=== PATIENT | female | born 1985 | race Caucasian/White ===

== ENCOUNTER → 2017-04-29 09:00 | Outpatient (CLI) | payer OTHER, SELFPAY ==
[2017-04-29 09:21] LABS: Absolute Neutrophil Count 4.4 X10^3/uL (2.0-7.7); Basophil# 0.03 X10^3/uL; Basophil% 0.5 % (0-1); Eosinophil# 0.18 X10^3/uL; Eosinophils% 2.7 % (0-5); Hematocrit 38.6 % (37-47); Hemoglobin 12.7 g/dl (12.0-15.0); Lymphocyte % 24.4 % (19-41); Mean Corp Hgb Conc 32.9 g/gl (32-36); Mean Corpuscular Hgb 29.5 pg (27.0-32.0); Mean Corpuscular Volume 89.8 fL (81-99); Mean Platelet Vol. 10.3 fl (6.2-12.0); Monocyte# 0.37 X10^3/uL; Monocyte% 5.6 % (0-10); Neutrophil # 4.37 X10^3/uL (2.7-7.7); Neutrophil % 66.6 % (47-70); Platelet Count 229 K/mm3 (150-450); RBC Distribution Width CV 12.8 % (11.6-14.6); RBC Distribution Width SD 41.5 fl (35.1-43.9); White Blood Count 6.6 K/mm3 (4.4-11.0)
[2017-04-29 09:25] LABS: POSITIVE COUNT NO; POSITIVE DIFFERENTIAL NO; POSITIVE MORPHOLOGY NO
[2017-04-29 09:35] LABS: AST(SGOT) 16 U/L (15-37); Alanine Aminotransfer ALT/SGPT 22 U/L (13-56); Albumin, Serum 3.8 g/dL (3.2-5.0); Alkaline Phosphatase 78 U/L (45-117); Bilirubin, Direct 0.08 mg/dL (0.00-0.30); Globulin 3.2 g/dL (2.2-4.2)
== END ==
PROVIDERS: Family Provider Family Medicine; PCP Family Medicine; Visit Provider Nurse Practitioner Family
DX: R10.11 Right upper quadrant pain (principal)
CPT/HCPCS: 80076; 85025

== ENCOUNTER → 2017-06-05 17:00 | Outpatient (CLI) | payer SELFPAY ==
[2017-06-05 17:42] LABS: D-Dimer Quantitative (DVT/PE) 0.34 FEU/ug/m (0.27-0.49)
== END ==
PROVIDERS: Visit Provider Family Medicine
DX: M54.9 Dorsalgia, unspecified (principal); R05 Cough; R53.83 Other fatigue
CPT/HCPCS: 85379

== ENCOUNTER 2017-06-20 11:26 | Emergency (ER) | payer OTHER, SELFPAY ==
[2017-06-20 11:27] VITALS: BP 150/93; PULSE 98; RESP 16; TEMP 36.8; O2SAT 99; BMI 47.8
--- NOTE | 2017-06-20 11:45 | ED.VISSUMM ---
- ER Visit Summary Date of Service: 06/20/17 Chief Complaint: Right upper quadrant abdominal pain History of Present Illness: The patient is a 31 F is post laparoscopic cholecystectomy done at [facility] 1 month ago. Outpatient procedure patient did well. Has not had any problems. Yesterday had some right upper quadrant discomfort associated with nausea and diarrhea. No melena. No fever. She described it as sharp pains. 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 She denies dysuria. She currently has an IUD and does not believe she is . Physical Examination: Well-appearing young female. Vital signs are stable afebrile. Patient pulse ox 99% on room air no signs of hypoxia. H EENT exam is unremarkable. Neck nontender. Lungs clear to auscultation bilaterally. Heart regular rate and rhythm no murmur. Abdomen is soft. Nondistended. Normal bowel sounds. She has mild right upper quadrant tenderness. No rebound, guarding or rigidity. No hernias or masses. Left upper, left lower and right lower quadrants are unremarkable. No peritoneal signs. No McBurney's point tenderness. No hernias or masses. Normal bowel sounds. She needs more fluids. She is moving all 4 extremities. Neurovascularly intact. Nontender no edema. Back exam nontender no CVA tenderness. Neurologic exam normal. Test Results: Normal. BMP normal. Liver enzymes normal. Lipase normal. Emergency Department Course and Treatment: Patient will undergo a GI workup. Be treated with IV fluids, Zofran for nausea and Toradol for pain. Is not Treatment Plan: Repeat exam patient is doing well at 1329. Abdomen is benign. She and I discussed her test. Clinically I do not feel that she needs a CAT scan at this time. She is comfortable with that plan. She has a follow-up with a general surgeon if she is not improving or return to ER if she feels worse. All Disposition: Discharge Impression: Acute abdominal pain right upper quadrant with nausea and vomiting secondary to viral syndrome. Status post cholecystectomy This note was generated with [employer] dictation software. It may contain incorrect words, spelling, and punctuation that were not noted in review of the chart prior to signing ED Disposition - Plan for ED Patient: Chief Complaint: Abd Pain Referrals: Abdulkadir Villafuerte MD [Primary Care Provider] -
--- NOTE | 2017-06-20 11:49 | ED.DCSUM_ITS ---
- ER Visit Summary Date of Service: 06/20/17 Chief Complaint: Right upper quadrant abdominal pain History of Present Illness: The patient is a 31 F is post laparoscopic cholecystectomy done at [facility] 1 month ago. Outpatient procedure patient did well. Has not had any problems. Yesterday had some right upper quadrant discomfort associated with nausea and diarrhea. No melena. No fever. She described it as sharp pains. 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 She denies dysuria. She currently has an IUD and does not believe she is . Physical Examination: Well-appearing young female. Vital signs are stable afebrile. Patient pulse ox 99% on room air no signs of hypoxia. H EENT exam is unremarkable. Neck nontender. Lungs clear to auscultation bilaterally. Heart regular rate and rhythm no murmur. Abdomen is soft. Nondistended. Normal bowel sounds. She has mild right upper quadrant tenderness. No rebound , guarding or rigidity. No hernias or masses. Left upper, left lower and right lower quadrants are unremarkable. No peritoneal signs. No McBurney's point tenderness. No hernias or masses. Normal bowel sounds. She needs more fluids. She is moving all 4 extremities. Neurovascularly intact. Nontender no edema. Back exam nontender no CVA tenderness. Neurologic exam normal. Test Results: Normal. BMP normal. Liver enzymes normal. Lipase normal. Emergency Department Course and Treatment: Patient will undergo a GI workup. Be treated with IV fluids, Zofran for nausea and Toradol for pain. Is not Treatment Plan: Repeat exam patient is doing well at 1329. Abdomen is benign. She and I discussed her test. Clinically I do not feel that she needs a CAT scan at this time. She is comfortable with that plan. She has a follow-up with a general surgeon if she is not improving or return to ER if she feels worse. All Disposition: Discharge Impression: Acute abdominal pain right upper quadrant with nausea and vomiting secondary to viral syndrome. Status post cholecystectomy This note was generated with [employer] dictation software. It may contain incorrect words, spelling, and punctuation that were not noted in review of the chart prior to signing ED Disposition - Plan for ED Patient: Chief Complaint: Abd Pain Referrals: Abdulkadir Villafuerte MD [Primary Care Provider] -
[2017-06-20] MEDS: 0.9% Normal Saline 1,000 ML 1000 ML IV (11:59)
[2017-06-20] MEDS: Ondansetron 4 MG/2 ML Vial IV (11:59)
[2017-06-20] MEDS: Ketorolac 30 MG/ML Syringe IV (11:59)
[2017-06-20 12:14] LABS: AST(SGOT) 20 U/L (15-37); Alanine Aminotransfer ALT/SGPT 38 U/L (13-56); Albumin, Serum 3.9 g/dL (3.2-5.0); Alkaline Phosphatase 92 U/L (45-117); Anion Gap 7 (5-15); BUN 13 mg/dL (7-18); BUN/Creat Ratio 15.3 RATIO (10-20); Bilirubin, Direct 0.17 mg/dL (0.00-0.30); Calcium,Total 8.1 mg/dL (8.5-10.1); Chloride 111 mmol/L (98-107); Creatinine, Serum 0.85 mg/dL (0.55-1.02); EST Glomerular Filtration Rate 83 mL/min (>60); Est Glom Filt Rate - Afr Amer 101 mL/min (>60); Estimated Creatinine Clearance 158.69 ml/min; Globulin 3.1 g/dL (2.2-4.2); Glucose 90 mg/dL (74-106); Lipase 85 U/L (73-393); Potassium 3.7 mmol/L (3.5-5.1); Sodium Level 139 mmol/L (136-145)
[2017-06-20 12:33] LABS: Absolute Lymphocyte Count 0.77 X10^3/ul (0.83-4.51); Absolute Neutrophil Count 4.4 X10^3/uL (2.0-7.7); Basophil# 0.01 X10^3/uL; Basophil% 0.2 % (0-1); Eosinophil# 0.07 X10^3/uL; Eosinophils% 1.2 % (0-5); Hemoglobin 13.9 g/dl (12.0-15.0); Lymphocyte # 0.77 X10^3/ul (4.0); Lymphocyte % 13.6 % (19-41); Mean Corp Hgb Conc 33.9 g/gl (32-36); Mean Corpuscular Hgb 30.3 pg (27.0-32.0); Mean Corpuscular Volume 89.3 fL (81-99); Mean Platelet Vol. 10.7 fl (6.2-12.0); Monocyte# 0.44 X10^3/uL; Monocyte% 7.7 % (0-10); Neutrophil # 4.38 X10^3/uL (2.7-7.7); Neutrophil % 77.1 % (47-70); POSITIVE COUNT NO; POSITIVE DIFFERENTIAL NO; POSITIVE MORPHOLOGY NO; Platelet Count 203 K/mm3 (150-450); RBC Distribution Width CV 12.9 % (11.6-14.6); RBC Distribution Width SD 41.9 fl (35.1-43.9); Red Blood Count 4.59 M/mm3 (4.2-5.4); White Blood Count 5.7 K/mm3 (4.4-11.0)
--- NOTE | 2017-06-20 13:31 | ED.DEP ---
ED Disposition - Plan for ED Patient: Disposition: Home or Assisted Living Chief Complaint: Abd Pain Instructions: ED Abdominal Pain Unkn Cause Referrals: Abdulkadir Villafuerte MD [Primary Care Provider] - As Needed Additional Instructions: Plenty of fluids and rest. Tylenol and Motrin for pain. Return to ER if you are feeling worse. If this does not get better and you have continued pain you will need further evaluation and potentially a CAT scan. Today all your tests are normal and I do not think that is necessary.
[2017-06-20 13:39] VITALS: PULSE 92; RESP 14; O2SAT 98
== END 2017-06-20 13:42 | disposition home or self-care (01) ==
PROVIDERS: Emergency Provider Emergency Medicine; Family Provider Family Medicine; PCP Family Medicine
DX: B34.9 Viral infection, unspecified (principal); Z90.49 Acquired absence of other specified parts of digestive tract
CPT/HCPCS: 80048; 80076; 83690; 85025; 96361; 96374; 96375; 99283; J7030; A4216; J2405

== ENCOUNTER 2019-11-14 10:23 | Emergency (ER) | payer BC, SELFPAY ==
[2019-11-14 10:25] VITALS: BP 149/88; PULSE 79; RESP 18; TEMP 36.4; O2SAT 97; BMI 50.5
--- NOTE | 2019-11-14 10:38 | ED.DCSUM_ITS ---
History of Present Illness Chief Complaint: Other, Pain/Inj Informant: Patient Onset: Days Maximum Severity: Mild Narrative: Patient has history of lupus that stable. She reports painful sensation involving the right side of her scalp and face for about 4 5 days. Today she woke and she had more pain trouble opening closing her mouth and her right eye seemed red. 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 Denies: Rhinorrhea, Sore throat Cardiovascular: Denies: Chest pain, Palpitations Respiratory: Denies: Dyspnea, Cough, Dyspnea on exertion Gastrointestinal: Denies: Abdominal pain, Nausea, Vomiting, Diarrhea, Melena, Hematochezia Genitourinary: Denies: Dysuria, Hematuria, Frequency Musculoskeletal: Denies: Back pain, Extremity Pain Skin: Denies: Rash, Wounds Neurological: Denies: Headache, Weakness, Numbness Physical Exam Vital Signs/Narrative: Vital Signs Temp Pulse Resp BP Pulse Ox 11/14/19 10:25 97.5 F L 79 18 149/88 H 97 General: Well nourished, Well developed, No Acute Distress Head: Normocephalic, Atraumatic Eyes: Perrl, EOMI ENT: Moist mucous membranes, No rhinorrhea Neck: Supple, Nontender Cardiovascular: Regular rate, Regular rhythm, No murmurs Respiratory: No distress, CTA bilaterally, Chest nontender Abdomen: Soft, Nontender, Nondistended, Normal bowel sounds Back: Nontender, Normal Inspection Extremities: Nontender, No edema Skin: Normal color, No rash Neurological: Alert, Oriented x3, Cranial nerves II-XII grossly intact, Normal Strength, Normal Sensation Psychological: Normal affect, Normal Mood Diagnostic/Tx/Re-eval - Medical Decision Making Her vital signs and physical exam are unremarkable when you palpate the right side of her scalp around her ear into her cheek she has some sense of discomfort and tingling she does have some mild pain to palpation over the right TMJ the TMs and canals are unremarkable the HEENT exam is unremarkable, mouth opening mucosa all normal no click no dental discomfort no neck discomfort fullness or pain her physical exam is otherwise unremarkable she has some very minimal conjunctiva redness to the bulbar conjunctiva right \ none left vision is normal pupils react normally, she has no history of trigeminal neura lgia TMJ syndrome sinusitis or exposures to coronavirus she has been indoors isolating herself Had a long conversation for her she is had this discomfort now for about 4 5 days etiology of which is unclear, at this time I explained to her given the differential should be started on Toradol and Naprosyn for home use erythromycin eye ointment, she was instructed well through outpatient providers tomorrow the next day for further management which may include additional medications and/or adjustments to provide substitute for the Plaquenil which was stopped she understands and agrees to this plan again she had no coronavirus exposures Please note there are no blisters no signs of zoster or any type of infectious etiology on physical exam, she has no symptoms to the left side of the head or the face and no symptoms elsewhere her health is otherwise very good Home stable Final impression painful sensation to right side of head and face ED Disposition - Plan for ED Patient: Diagnosis: Facial pain syndrome Instructions: ED Neuralgia Trigeminal Prescriptions: Erythromycin Ophthalmic 1 applic RIGHT EYE TID #1 tube Prescription Printed Naproxen [Naprosyn] 500 mg PO BID #20 tab Prescription Printed Referrals: Abdulkadir Villafuerte MD [Primary Care Provider] - Additional Instructions: The exact cause of your facial pain is unclear, please follow-up with your outpatient providers return for change in symptoms
[2019-11-14] MEDS: Ketorolac 60 MG/2 ML Vial IM (10:46)
[2019-11-14 11:17] VITALS: BP 130/88; PULSE 74; RESP 16; O2SAT 98
== END 2019-11-14 11:18 | disposition home or self-care (01) ==
LOC: ED 10:58
PROVIDERS: Emergency Provider Emergency Medicine; PCP Family Medicine
DX: R51 Headache (principal); M32.9 Systemic lupus erythematosus, unspecified; Z79.899 Other long term (current) drug therapy
CPT/HCPCS: 96372; 99282

== ENCOUNTER 2019-12-09 21:55 | Emergency (ER) | payer BC, SELFPAY ==
[2019-12-09 21:56] VITALS: BP 153/93; PULSE 100; RESP 18; TEMP 36.3; O2SAT 98; BMI 54.3
--- NOTE | 2019-12-09 22:33 | CT_ITS ---
STUDY: CT BRAIN WITHOUT CONTRAST REASON FOR EXAM: Female, 33 years old. 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 Hx of migraines. RADIATION DOSAGE (If Supplied By Facility): CTDIvol = ( 44.99 ) mGy, DLP = ( 812.98 ) mGycm TECHNIQUE: Transaxial CT imaging of the brain was performed without administration of intravenous contrast material. Individualized dose optimization techniques were used for this CT. COMPARISON: No relevant priors. FINDINGS: Normal soft tissue structures. Normal calvarium. Normal size ventricles and extra-axial spaces for the patient''s age. Normal white matter tracts of the cerebral hemispheres. Normal basal ganglia and thalami. Normal brainstem. Normal cerebellum. There is no intracranial hemorrhage. There are no findings of an acute ischemic infarction. Normal visualized paranasal sinuses. CT/Brain/Head without Contrast IMPRESSION: Normal unenhanced CT scan of the brain. Electronically Signed: Kathrine Sultana MD at 23:49 EDT Tel , Service support ,
[2019-12-09] MEDS: Metoclopramide 10 MG/2 ML Vial IV (22:47)
[2019-12-09] MEDS: DiphenhydrAMINE 50 MG/ML Syringe 25 MG IV (22:47)
[2019-12-09] MEDS: Ketorolac 15 MG/ML Vial IV (22:47)
--- NOTE | 2019-12-10 00:28 | ED.VIS.HA ---
History of Present Illness Chief Complaint: Headache Informant: Patient Onset: Days Context: Gradual Timing: Continuous Quality: Burning Location: Right occipital Current Severity: Moderate Maximum Severity: Severe Worsened by: Nothing Relieved by: Nothing Associated Symptoms: Negative for: Fever, Nausea, Vomiting, Sore Throat, Sinus Pressure, Numbness, Tingling, Preceding Aura, Visual Changes, Blurred Vision, Photophobia, Visual Loss Injury: - - There is no history of trauma Narrative: Patient is a 33-year-old woman with history of migraine headache. She states this headache started 3 days ago. This is not like her migraine headache. The pain describes a burning sensation initially did increase and decrease in intensity is now constant and describes a burning sensation right occipital area. There is no change with touch, change in position i.e. leaning forward or supine versus upright position. She denies rhinorrhea, congestion postnasal drainage. She denies sore throat, change in voice or difficulty swallowing. She denies ringing or ears, ear pain or drainage from her ears. She denies neck stiffness. She denies cardiac symptoms. She denies nausea, vomiting diarrhea. She denies myalgias or arthralgias. She denies rash. She denies problems with balance or coordination. She was placed on gabapentin by her primary care physician with no improvement. Prior similar symptoms: No Recent Illness/Hospitalization: No - Past Medical History (1) History of migraine headaches Status: Acute (2) Family history of subarachnoid hemorrhage Status: Acute Past Medical History - Allergies and Home Meds Allergies/Adverse Reactions: Allergies rizatriptan [From Maxalt] Adverse Reaction (Verified 12/09/19 21:59) Other LIGHTHEADED Primary Care Physician: Abdulkadir Villafuerte MD [Primary Care Provider] - Prior records reviewed: No Surgical History: noncontributory Lives: With Family Smoking Status: Never smoker Alcohol: None Drugs: None Review of Systems General: Denies: Chills, Fever, Sweats Eyes: Denies: Visual changes - bilaterally, Blurred Vision - bilaterally, Diplopia ENT: Denies: Rhinorrhea, Sore throat Cardiovascular: Denies: Chest pain, Palpitations, Heart racing Respiratory: Denies: Dyspnea, Cough, Dyspnea on exertion Gastrointestinal: Denies: Abdominal pain, Nausea, Vomiting, Diarrhea, Melena, Hematochezia Genitourinary: Denies: Dysuria, Hematuria, Frequency Musculoskeletal: Denies: Myalgias, Arthralgias, Neck pain, Back pain, Swelling, Extremity Pain Skin: Denies: Rash, Wounds Neurological: Reports: Headache. Denies: Weakness, Parasthesia, Numbness Psych: Denies: Depression, Anxiety Physical Exam Vital Signs/Narrative: Vital Signs Temp Pulse Resp BP Pulse Ox 12/09/19 21:56 97.3 F L 100 18 153/93 H 98 Inital Vital Signs reviewed: Yes General: Well nourished, Well developed, Obese Head: NC, AT. Negative for: Trauma, Tenderness, Temporary Artery Tenderness, Vesicular Rash, Sinus Tenderness Eyes: Perrl, EOMI. Negative for: Pale conjunctiva, Scleral icterus ENT: Moist mucous membranes, No rhinorrhea, TM's clear, - - There is no APD. There is no photophobia.. Negative for: Nasal congestion, Sinus tenderness Neck: Supple, No Lymphadenopathy, No JVD, Nontender, No Meningismus Cardiovascular: Regular rate, Regular rhythm, No murmurs, Normal S1, Normal S2 Respiratory: No distress, CTA bilaterally, Chest nontender Abdomen: Soft, Nontender, Nondistended, Normal bowel sounds Back: Nontender, Normal Inspection Extremities: Nontender, No edema Skin: Normal color, No rash Neuro: Alert, Oriented x3, Cranial nerves II-XII grossly intact, Normal Strength, Normal Sensation, Normal DTR, Normal Gait, - - Is no clonus or Babinski sign. There is no abnormality with cerebellar testing. Psychological: Normal affect Diagnostic/Tx/Re-eval Impressions Brain CT 12/09/19 22:33 IMPRESSION: Normal unenhanced CT scan of the brain. Electronically Signed: Kathrine Sultana MD at 23:49 EDT Tel , Service support , 12/09/19 22:33 Brain/Head without Contrast [CT] Stat - Medical Decision Making Patient's history and exam does not suggest greater occipital neuralgia. This may be an atypical migraine. With family history of subarachnoid hemorrhage CT was obtained. Patient was medicated with IV Benadryl, Reglan and Toradol. When she was reassessed at 0028 she is sitting up smiling in no discomfort. ED Disposition - Plan for ED Patient: Disposition: Home or Assisted Living Diagnosis: Unilateral occipital headache Instructions: ED Headache Unspecified Referrals: Abdulkadir Villafuerte MD [Primary Care Provider] - As Needed
[2019-12-10 00:38] VITALS: BP 144/71; PULSE 74; RESP 18; O2SAT 98
== END 2019-12-10 00:38 | disposition home or self-care (01) ==
PROVIDERS: Emergency Provider Emergency Medicine; PCP Family Medicine
DX: R51.9 Headache, unspecified (principal); E66.9 Obesity, unspecified; Z79.899 Other long term (current) drug therapy
CPT/HCPCS: 70450; 96374; 96375; 99285; A4216

== ENCOUNTER 2024-07-19 16:25 | Emergency (ER) | payer BC, SELFPAY ==
[2024-07-19 16:26] VITALS: BP 161/108; PULSE 67; RESP 16; TEMP 37.1; O2SAT 100; BMI 48.4
[2024-07-19 16:39] VITALS: O2SAT 100
--- NOTE | 2024-07-19 16:42 | EKG12_ITS ---
Test Reason : SOB Blood Pressure : */* mmHG Vent. Rate : 63 BPM Atrial Rate : 63 BPM P-R Int : 168 ms QRS Dur : 86 ms QT Int : 422 ms P-R-T Axes : 45 37 20 degrees QTcB Int : 431 ms Normal sinus rhythm Normal ECG Confirmed by VIRGINIA CLIFTON, GEE ([id number]), photo editor JANETTE SINGH ([id number]) on 07/20/2024 1:29:05 PM Referred By: Confirmed By: GEE COLEMAN MD
--- NOTE | 2024-07-19 16:45 | EDS_ITS ---
HPI History of Present Illness Chief Complaint: Shortness of Breath Informant: patient Onset/Context/Timing Onset: Days (3) Context: gradual Timing: Continuous Quality: Positive for Dyspnea on exertion Worsened by: Exertion Relieved by: - (Fan) Associated Symptoms Negative for cough, rhinorrhea, post nasal drip, ear pain, fever, sore throat, chills, sweats, clear sputum, white sputum, yellow sputum or green sputum Chest Pain: Positive for - (Heaviness) Narrative Narrative: Patient presents with shortness of breath that has been getting worse over the past 3 days. Patient states it is gradually getting worse. Patient states it is constant but worse with exertion. Patient states he gets better when she is able to put a fan in front of her. Patient admits to some heaviness in her chest but denies any fevers, chills, cough, sore throat, rhinorrhea. Patient denies any nausea or vomiting. Patient denies any diaphoresis. PE Risk Factors: Negative for Cancer, OCP + Smoking + > 35, Prior DVT or PE, Recent immobilization, Recent surgery or Recent travel [facility] Medical History FHx: cholecystectomy Lupus Depression Anxiety Medical History no medical history Home Medications ?Medication ?Instructions ?Recorded ?Last Taken ?Type duloxetine 60 mg capsule,delayed 60 mg PO DAILY 06/20/17 History release topiramate 100 mg tablet 100 mg PO DAILY 06/20/17 History gabapentin 100 mg capsule 100 mg PO BID 12/09/19 Unkno wn History Allergy/AdvReac Type Severity Reaction Status Date / Time rizatriptan (From [facility]) AdvReac Other Verified 07/19/24 16:26 Family History (Updated 07/19/24 @ 16:[address] Benton Keyes DO) Mother CAD (coronary artery disease) Family History no significant family his Surgical History History of tonsillectomy and adenoidectomy Previous section H/O gastric bypass Surgical History no surgical history Social History Smoking Status: Never smoker ROS ROS ED Constitutional Constitutional ED: Denies chills or fever(s) Eyes Eyes: Denies blurry vision or change in vision ENT ENT ED: Denies rhinorrhea or sore throat Cardiovascular Cardiovascular: Reports chest pain; Denies palpitations Respiratory/Chest Respiratory/Chest: Reports dyspnea; Denies cough Gastrointestinal Gastrointestinal: Denies nausea or vomiting Genitourinary Genitourinary ED: Denies dysuria or hematuria Musculoskeletal Musculoskeletal: Denies back pain or neck pain Integumentary Denies abscess or rash Neurologic Neurologic: Denies headache(s) or weakness Allergic/Immunologic Allergic/Immunologic ED: Denies mouth swelling or urticaria EXAM Physical Exam Const Vital Signs: 07/19/24 16:26 07/19/24 16:39 07/19/24 17:14 Temperature 98.7 F Temperature Source Oral Pulse Rate 67 83 Respiratory Rate 16 22 H Respiratory Effort Normal Respiratory Depth Normal Respiratory Pattern Normal Tachypnea Blood Pressure 161/108 H Blood Pressure Mean 125 Pulse Ox 100 Oxygen Delivery Method Room Air Room Air 07/19/24 17:25 07/19/24 18:00 07/19/24 19:12 Temperature 98.7 F Temperature Source Pulse Rate 65 70 70 Respiratory Rate 28 H 22 H 22 H Respiratory Effort Respiratory Depth Respiratory Pattern Blood Pressure 126/81 H 118/73 Blood Pressure Mean 96 88 Pulse Ox 99 Oxygen Delivery Method Positive well nourished and well developed Constitutional Narrative: BMI is 48.5 General Appearance ED: well developed and NAD HEENT Reports moist mucous membranes Neck supple and no JVD Resp normal respiratory effort and clear to auscultation bilaterally Cardio regular rate and regular rhythm GI non-tender and non-distended Palpation: soft Neuro oriented x3, CN's II-XII intact bilaterally and no sensory deficits noted [place] Coma Scale: document GCS findings Spontaneous Obeys Commands Oriented 15 Sensorium / Orientation: alert Motor Exam: strength 5/5 throughout MDM MDM MDM Narrative Medical decision making narrative: Differential diagnosis includes cardiac dysrhythmia, cardiac ischemia, pneumonia, bronchitis, viral illness, pulmonary embolism, and anxiety. EKG will be obtained to assess for cardiac dysrhythmia and cardiac ischemia. Chest x-ray will be obtained to assess for pneumonia or bronchitis. CBC will be obtained to assess for leukocytosis and anemia. Basic metabolic profile will be obtained to assess for electrolyte abnormality renal function. Serum hCG will be obtained to assess for . D-dimer will be obtained to assess for pulmonary embolism. COVID-19, influenza, and RSV PCR will be obtained to assess for viral illness. History & Record Review Additional record(s) reviewed:: Prior labs Lab Data Attestation: I reviewed the patient's lab results. Lab results narrative: CBC was reviewed and was within normal limits. Basic metabolic profile was reviewed and was within normal limits. D-dimer was reviewed and was normal at 0.27. Serum hCG was reviewed and was negative. COVID-19 PCR was reviewed and was negative. Influenza PCR was reviewed and was negative for influenza A and influenza B. RSV PCR was reviewed and was negative. Labs: Laboratory Results - last 24 hr 07/19/24 16:55 WBC 9.0 RBC 4.50 Hgb 13.7 Hct 40.0 MCV 88.9 MCH 30.4 MCHC 34.3 RDW Std Deviation 44.5 H RDW Coeff of Jamal 13.7 Plt Count 278 MPV 10.8 Immature Gran % (Auto) 0.400 Neut % (Auto) 66.0 Lymph % (Auto) 24.9 [place] % (Auto) 8.2 Eos % (Auto) 0.2 Baso % (Auto) 0.3 Absolute Neuts (auto) 5.9 Absolute Lymphs (auto) 2.23 Nucleated RBC % 0 D-Dimer Quant (PE/DVT) 0.27 Sodium 136 Potassium 4.2 Chloride 105 Carbon Dioxide 20.3 L Anion Gap 11 BUN 16 Creatinine 0.91 Estim Creat Clear Calc 92.70 Est GFR (MDRD) Non-Af 84 BUN/Creatinine Ratio 17.8 Glucose 100 H Calcium 9.4 Serum , Qual NEGATIVE Radiography Diagnostic Testing: Clinical Impression(s) from Imaging Studies Chest X-Ray 07/19/24 17:15 IMPRESSION: No acute cardiopulmonary abnormality. Reading Location: [id number] and lateral chest x-ray was obtained. There are 2 views. On my independent interpretation, lung mckeon are clear. There is normal cardiac silhouette. Bony thorax is normal. There is no acute process noted. Radiologist also interpreted the x-ray and agrees. EKG Initial EKG: Interpretation: Sinus Rhythm (63) and No Acute Injury Pattern Comments: EKG was obtained. On my independent interpretation, it showed a normal sinus rhythm with a rate of 63. CO interval, QRS interval, and QTc intervals were all normal. [place] was normal. There are no acute ST or T wave changes. Prior EKG tracings: not available for review Prior: No Prior Treatment and Re-Evaluation :: Patient was given a DuoNeb aerosol. Patient had minimal improvement with this. Patient was advised of her findings. Patient was instructed to follow-up with her primary care physician in 5 to 7 days. Patient directed to return if worse in any way. Patient understood and was agreeable with the plan. All questions were answered. Discharge Plan Triage Chief Complaint: Shortness of Breath ED Provider: Benton Keyes Dx/Rx/DC Orders Clinical Impression: Dyspnea, Elevated blood pressure reading without diagnosis of hypertension Instructions: ED Dyspnea Prescriptions: No Action topiramate 100 MG tablet 100 mg PO DAILY duloxetine 60 MG capsule 60 mg PO DAILY gabapentin 100 MG capsule 100 mg PO BID Primary Care Provider: Abdulkadir Villafuerte Referrals: Abdulkadir Villafuerte MD [Primary Care Provider] - 5-7 Days Print Language: Malian Disposition Disposition: Home, Self Care Discharge Date/Time: 07/19/24 19:13
[2024-07-19 17:11] LABS: Absolute Lymphocyte Count 2.23 X10^3/uL (0.83-4.51); Absolute Neutrophil Count 5.9 X10^3/uL (2.0-7.7); Basophil# 0.03 X10^3/uL; Basophil% 0.3 % (0-1); Eosinophil# 0.02 X10^3/uL; Eosinophils% 0.2 % (0-5); Hemoglobin 13.7 g/dL (12.0-15.0); Lymphocyte # 2.23 X10^3/ul (0.83-4.51); Lymphocyte % 24.9 % (19-41); Mean Corp Hgb Conc 34.3 g/dL (32-36); Mean Corpuscular Hgb 30.4 pg (27.0-32.0); Mean Corpuscular Volume 88.9 fL (81-99); Mean Platelet Vol. 10.8 fl (6.2-12.0); Monocyte# 0.73 X10^3/uL; Monocyte% 8.2 % (0-10); NRBC Flagged by Analyzer 0 % (0-5); Platelet Count 278 K/mm3 (150-450); RBC Distribution Width CV 13.7 % (11.6-14.6); RBC Distribution Width SD 44.5 fl (35.1-43.9)
[2024-07-19] MEDS: Ipratropium/Albuterol Sulfate 3 ML AMPUL.NEB INHALATION (17:13)
[2024-07-19 17:14] VITALS: PULSE 83; RESP 22
--- NOTE | 2024-07-19 17:15 | RAD_ITS ---
PROCEDURE: CHEST PA AND LATERAL 07/19/2024 REASON FOR EXAM: DYSPNEA TECHNIQUE: Frontal and lateral views of the chest. COMPARISON: None FINDINGS: Hardware: None Heart: The heart size is normal. Mediastinum: The mediastinal contour is unremarkable. Lungs: No focal consolidation or pleural effusion. Bones: The bones are unremarkable. Surgical clips in the right upper abdomen. RAD/Chest PA and Lateral IMPRESSION: No acute cardiopulmonary abnormality. Reading Location: [id number]
[2024-07-19 17:20] LABS: Internal QC Validated? YES +Cl - CLEAR BKGD; Pregnancy, Serum, hCG Quali. NEGATIVE Negative
[2024-07-19 17:21] LABS: Record Kit Lot#, Serum Preg. 947241
[2024-07-19 17:25] VITALS: BP 126/81; PULSE 65; RESP 28
[2024-07-19 17:28] LABS: Anion Gap 11 (5-15); BUN 16 mg/dL (4-19); BUN/Creat Ratio 17.8 RATIO (10-20); Calcium,Total 9.4 mg/dL (7.6-11.0); Carbon Dioxide 20.3 mmol/L (21.0-32.0); Chloride 105 mmol/L (98-108); Creatinine, Serum 0.91 mg/dL (0.70-1.20); EST Glomerular Filtration Rate 84 (>60); Glucose 100 mg/dL (70-99); Potassium 4.2 mmol/L (3.3-5.1); Sodium Level 136 mmol/L (133-145)
[2024-07-19 18:00] VITALS: PULSE 70; RESP 22
[2024-07-19 18:17] LABS: D-Dimer Quantitative (DVT/PE) 0.27 FEU/ug/m (0.27-0.49)
[2024-07-19 19:12] VITALS: BP 118/73; PULSE 70; RESP 22; TEMP 37.1; O2SAT 99
== END 2024-07-19 19:13 | disposition home or self-care (01) ==
PROVIDERS: Emergency Provider Emergency Medicine; PCP Family Medicine; Visit Provider Emergency Medicine
DX: R06.00 Dyspnea, unspecified (principal); R03.0 Elevated blood-pressure reading, without diagnosis of hypertension; Z90.49 Acquired absence of other specified parts of digestive tract; F32.A Depression, unspecified; F41.9 Anxiety disorder, unspecified; Z79.899 Other long term (current) drug therapy
CPT/HCPCS: 71046; 80048; 84703; 85025; 85379; 87631; 93005; 94640; 99284; A4216